=== PATIENT | female | born 1990 | race Caucasian/White ===

== ENCOUNTER 2024-05-02 13:45 | Emergency (ER) | payer OTHER ==
[2024-05-02 14:00] VITALS: BP 101/64; PULSE 82; RESP 16; TEMP 98.4; BMI 26.3
== END 2024-05-02 18:43 | disposition home or self-care (01) ==
LOC: JER 13:45
DX: O03.9 Complete or unspecified spontaneous abortion without complication (principal)
CPT/HCPCS: 36415; 76817-TC; 84702; 84703; 86850; 86900; 86901; 99284-25

== ENCOUNTER 2024-05-04 14:37 | Emergency (ER) | payer OTHER ==
[2024-05-04 14:48] VITALS: BP 117/74; PULSE 69; RESP 18; TEMP 97.8; BMI 25.7
== END 2024-05-04 16:27 | disposition home or self-care (01) ==
LOC: JER 14:37 → JERFT 14:37
DX: O03.39 Incomplete spontaneous abortion with other complications (principal); R10.30 Lower abdominal pain, unspecified
CPT/HCPCS: 36415; 84702; 99283-25

== ENCOUNTER 2024-05-07 05:09 | Emergency (ER) | payer OTHER ==
[2024-05-07 05:16] VITALS: BP 109/72; PULSE 79; RESP 18; TEMP 97.9; BMI 25.7
[2024-05-07] MEDS ORDERED: ACETAMINOPHEN 325 MG TABLET (FP) ONE (05:38)
[2024-05-07] MEDS: ACETAMINOPHEN 325 MG TABLET (FP) PO ONE (05:52)
[2024-05-07 06:17] LABS: PH,URINE 6.5 (5.0-8.0); URINE APPEARANCE CLEAR; URINE BILIRUBIN NEGATIVE (NEGATIVE); URINE COLOR YELLOW; URINE GLUCOSE (UA) 3+ (NEGATIVE); URINE KETONE NEGATIVE (NEGATIVE); URINE LEUK ESTERASE NEGATIVE (NEGATIVE); URINE NITRITE NEGATIVE (NEGATIVE); URINE PROTEIN NEGATIVE (NEGATIVE)
== END 2024-05-07 12:24 | disposition home or self-care (01) ==
LOC: JER 05:09
DX: O03.9 Complete or unspecified spontaneous abortion without complication (principal)
CPT/HCPCS: 36415; 76817-TC; 81003; 84702; 87086; 99284-25